=== PATIENT | male | born 2000 | race Caucasian/White ===

== ENCOUNTER 2024-09-06 19:07 | Emergency (ER) | payer SELFPAY ==
[2024-09-06 19:24] VITALS: BP 113/72; PULSE 68; RESP 16; TEMP 98.6; BMI 21.5
[2024-09-06 20:41] LABS: BASO % 0.6 % (0-2.0); EOS % 2.8 % (0-4.5); HEMATOCRIT 35.2 % (35.4-49); LYMPH % 28.8 % (8-40); MCH 23.5 pg (25.7-33.7); MCHC 31.1 g/dl (32.0-35.9); MEAN CELL VOLUME 75.4 fl (80-96); MEAN PLT VOLUME 7.5 fl (7.5-11.1); MONO % 12.5 % (3.8-10.2); NEUT % 55.3 % (42.8-82.8); PLATELET COUNT 247 10^3/uL (134-434); RBC 4.67 M/mm3 (4.00-5.60); RDW 20.7 % (11.9-15.9); WHITE BLOOD COUNT 5.2 K/mm3 (4.0-10.0)
[2024-09-06 20:45] LABS: ADD RBC MORPHOLOGY YES
[2024-09-06 21:00] LABS: POTASSIUM 3.9 mmol/L (3.5-5.1)
[2024-09-06 21:03] LABS: ALBUMIN 3.7 g/dl (3.4-5.0); BLOOD UREA NITROGEN 14.2 mg/dL (7-18)
[2024-09-06 21:08] LABS: BILIRUBIN,TOTAL 0.4 mg/dL (0.2-1); TOT PROT 7.1 g/dl (6.4-8.2)
[2024-09-06 22:31] LABS: HIV INTERPRETATION NEGATIVE (NEGATIVE)
== END 2024-09-06 22:28 | disposition home or self-care (01) ==
LOC: JERFT 19:07
DX: R10.13 Epigastric pain (principal)
CPT/HCPCS: 36415; 74018-TC-FY; 80053; 83690; 85025; 86803; 87389; 99284-25